=== PATIENT | female | born 1980 | race Caucasian/White ===

== ENCOUNTER 2023-03-23 13:08 | Emergency (ER) | payer OTHER, SELFPAY ==
[2023-03-23 13:13] VITALS: BP 98/70; PULSE 72; O2SAT 95
[2023-03-23 13:18] VITALS: BP 108/79; PULSE 74; RESP 16; TEMP 36.7; O2SAT 97; BMI 25.7
--- NOTE | 2023-03-23 13:31 | ED_ITS ---
HPI - General Adult General Chief complaint: General Medical Stated complaint: DIZZINESS NOT FEELING WELL Time Seen by Provider: 03/23/23 13:19 Source: patient Mode of arrival: EMS Limitations: no limitations History of Present Illness HPI narrative: 42 yo female who reports URI symptoms with cough and cold symptoms took mucinex cough and cold x 3 days with poor appetite. reports she has not been eating much and her is also ill. Denies carbon monoxide concerns. Patient fell asleep at work and EMS was called. Took her usual suboxone dose denies other ingestions. MD complaint: fatigue Onset (ago): day(s) (3) Radiation: non-radiation Severity: mild Quality: aching Relieving factors: other (tired at work) Exacerbating factors: movement Associated symptoms: cough, loss of appetite and other (runny nose) Treatments prior to arrival: other (mucinex cough and cold) Related Data Allergies Allergy/AdvReac Type Severity Reaction Status Date / Time Penicillins Allergy Rash Verified 03/23/23 13:41 Sulfa (Sulfonamide Allergy Rash Verified 03/23/23 13:41 Antibiotics) Review of Systems 2 Review of Systems: Constitutional : No Fever, No Chills, pos Fatigue ENT/Mouth : No sore throat, pos Rhinorrhea Eyes: No Eye Pain, No Swelling, No Redness Cardiovascular : No Chest Pain, No SOB, No Dyspnea on Exertion Respiratory : pos Cough, No Sputum Gastrointestinal : pos Nausea, No Vomiting, No Diarrhea, No abdominal Pain Genitourinary : No Dysuria, No Urinary Frequency, No Hematuria, Musculoskeletal : No joint pain, No Myalgias, No Joint Swelling Skin : No Skin Lesions, No rash Neuro : No Weakness, No Numbness, No Dizziness, no Headache Psych : No Anxiety/Panic, No Depression Heme/Lymph: No Bruising, No Bleeding,No Lymphadenopathy Endocrine : No Polyuria, No Polydipsia All other systems reviewed and are negative [facility] Past Medical History Attestation statement: The following information was validated with the patient. Medical History Opiate use Social History Social History (Updated 03/23/23 @ 14:13 by Fiona Collins DO) Patient Tobacco Use Status: Tobacco use Unknown Advance Directives: No Advance Directives Information Provided: No Physical Exam ED Vital Signs: Vital Signs - 24 hr 03/23/23 13:18 12/01/23 14:11 Temperature 98.1 F Pulse Rate 74 88 Respiratory Rate 16 15 Blood Pressure 108/79 Pulse Oximetry 97 96 Oxygen Delivery Method Room Air Room Air BMI result Body Mass Index 25.7 Appearance: slightly sedated. Oriented X3. No acute distress. Eyes: Pupils equal, round and reactive to light. ENT: Pharynx normal. Neck: Normal inspection. Neck supple. CVS: Normal heart rate and rhythm. Pulses normal. Respiratory: No respiratory distress. Breath sounds normal. Abdomen: Soft and nontender. Skin: Skin warm and dry. Normal skin color. Normal skin turgor. Extremities: No lower extremity edema. No calf ttp Neuro: Oriented X 3. No motor deficit. No sensory deficit. Medications Administered Discontinued Medications Generic Name Dose Route Start Last Admin Trade Name Freq PRN Reason Stop Dose Admin Sodium Chloride 1,000 mls @ 999 mls/hr 03/23/23 14:00 03/23/23 14:35 Ns IV 03/23/23 15:00 999 mls/hr .Q1H1M REJI Administration Medical Decision Making Medical Decision Making [facility] Narrative: 42 yo female with hx of suboxone use but on regular dose here with c/o URI symptoms and not feeling well took cough and cold medications OTC - at this time will obtain basic labs, hydrate and check CO level. She is not altered no headaches, no signs of trauma doubt ICH - possible fatigue, ingestion, CO Differential Diagnosis Differential Diagnoses: The differential diagnosis associated with the presentation includes possible fatigue, ingestion, CO Admission/Observation Consideration of admission/observation: Escalation of care including admission/observation considered patient is more awake she does not want narcan to take home she denies ingestion states she is fine and wants to call for ride. Lab Data [facility] Lab Attestation statement: I reviewed the patient's lab results. 03/23/23 14:28 03/23/23 14:28 Labs: Lab Results 03/23/23 03/23/23 Range/Units 14:28 14:35 WBC 5.0 (4.8-10.8) X10*3/uL RBC 4.07 L (4.20-5.50) X10*6/uL Hgb 12.7 (12.0-16.0) g/dl Hct 37.1 (37.0-47.0) % MCV 91.2 (80.0-98.0) fL MCH 31.2 (27.0-33.0) pg MCHC 34.2 (31.0-35.0) g/dl RDW 13.3 (11.0-16.0) % Plt Count 216 (160-400) X10*3/uL MPV 10.5 (9.4-12.3) fL Immature Gran % (Auto) 0.4 (0.0-0.4) % Neut % (Auto) 51.8 (45-73) % Lymph % (Auto) 23.8 (20-40) % [place] % (Auto) 13.7 H (2-11) % Eos % (Auto) 9.5 H (0-4) % Baso % (Auto) 0.8 (0-2) % Lymph # (Auto) 1.2 (1.2-4.9) X10*3/uL [place] # (Auto) 0.7 (0.1-1.2) X10*3/uL Eos # (Auto) 0.5 H (0.0-0.4) X10*3/uL Baso # (Auto) 0.0 (0.0-0.2) X10*3/uL Abs Immat Gran (auto) 0.02 (0.00-0.03) X10*3/uL Absolute Neuts (auto) 2.6 (2.0-8.3) x10*3/uL Absolute Nucleated RBC 0.000 (0.0-0.012) X10*3/uL Nucleated RBC % (auto) 0.0 (0.0-0.2) /100WBC Carboxyhemoglobin % 3.9 % Sodium 139 (135-145) mmol/L Potassium 4.7 (3.3-5.1) mmol/L Chloride 108 (96-108) mmol/L Carbon Dioxide 23 (22-29) mmol/L Anion Gap 13 (12-20) BUN 16 (9-16) mg/dL Creatinine 0.74 (0.5-1.4) mg/dL Estim Creat Clear Calc 89.3 Estimated GFR > 60 Random Glucose 94 (60-115) mg/dL Calcium 9.4 (8.4-10.2) mg/dL Magnesium 1.9 (1.6-2.6) mg/dL Total Bilirubin 0.4 (0.0-1.0) mg/dL Direct Bilirubin 0.1 (0.0-0.5) mg/dL AST 42 H (5-31) U/L ALT 26 (0-31) U/L Alkaline Phosphatase 56 (39-117) U/L Total Protein 8.0 (6.5-8.0) g/dL Albumin 4.2 (3.5-5.0) g/dL Independent Interpretation I performed an independent interpretation of an: EKG Interpretation: Rate: 81 Rhythm: NSR [place]: normal Normal P waves. Normal ROSSANA. Normal QRS complex. ST T wave : normal no POPPY, inverted T wave V1 - V3. qTC: normal prior studies: no acute ischemia The study has been interpreted contemporaneously by me. . Independent Historian Clinical information obtained from an independent historian. History obtained from or confirmed by: EMS Discharge Plan Discharge Clinical Impression: Fatigue Qualifiers: Fatigue type: unspecified Qualified Code(s): R53.83 - Other fatigue Patient Disposition: Home, Self-Care Instructions: Fatigue (ED) Additional Instructions: will call you if covid and flu positive. labs normal. return for worsening symptoms, confusion, severe headaches, vomiting, difficulty breathing or any other concerns. Stand Alone Forms: Work/School Release
--- NOTE | 2023-03-23 13:56 | ECG_ITS ---
Test Reason : DIZZINESS Blood Pressure : / mmHG Vent. Rate : 081 BPM Atrial Rate : 081 BPM P-R Int : 154 ms QRS Dur : 088 ms QT Int : 410 ms P-R-T Axes : 043 000 011 degrees QTc Int : 476 ms Normal sinus rhythm Normal ECG No previous ECGs available Referred By: Fiona Collins Electronically Signed By:UMA HARGROVE MD
[2023-03-23 14:11] VITALS: PULSE 88; RESP 15; O2SAT 96
[2023-03-23] MEDS: 0.9 % Sodium Chloride 1,000 ML 999 ML IV (14:35)
[2023-03-23 14:37] LABS: MANUAL DIFF FLAG NO
[2023-03-23 14:41] LABS: Carbon Monoxide POC 3.9 %
[2023-03-23 14:41] LABS: Basophils Percent Auto 0.8 % (0-2); Eosinophils Absolute Auto 0.5 X10*3/uL (0.0-0.4); Eosinophils Percent Auto 9.5 % (0-4); Hematocrit 37.1 % (37.0-47.0); Hemoglobin 12.7 g/dl (12.0-16.0); Imm Gran Abs Auto 0.02 X10*3/uL (0.00-0.03); Imm Gran Pct Auto 0.4 % (0.0-0.4); Lymphocytes Absolute Auto 1.2 X10*3/uL (1.2-4.9); Lymphocytes Percent Auto 23.8 % (20-40); Mean Corpuscular HGB Conc 34.2 g/dl (31.0-35.0); Mean Corpuscular Hemoglobin 31.2 pg (27.0-33.0); Mean Corpuscular Volume 91.2 fL (80.0-98.0); Mean Platelet Volume 10.5 fL (9.4-12.3); Monocytes Absolute Auto 0.7 X10*3/uL (0.1-1.2); Monocytes Percent Auto 13.7 % (2-11); Neutrophils Absolute Auto 2.6 x10*3/uL (2.0-8.3); Neutrophils Percent Auto 51.8 % (45-73); Platelet Count 216 X10*3/uL (160-400); Red Blood Count 4.07 X10*6/uL (4.20-5.50); Red Cell Distribution Width 13.3 % (11.0-16.0)
[2023-03-23 14:42] LABS: Carbon Monoxide Refer to POC result
[2023-03-23 15:20] LABS: Alanine Aminotransferase 26 U/L (0-31); Albumin Level 4.2 g/dL (3.5-5.0); Alkaline Phosphatase 56 U/L (39-117); Anion Gap 13 (12-20); Aspartate Amino Transferase 42 U/L (5-31); Bilirubin Direct 0.1 mg/dL (0.0-0.5); Bilirubin Total 0.4 mg/dL (0.0-1.0); Blood Urea Nitrogen 16 mg/dL (9-16); Calcium 9.4 mg/dL (8.4-10.2); Carbon Dioxide 23 mmol/L (22-29); Chloride 108 mmol/L (96-108); Creatinine Clr Calc Pharmacy 89.3; Estimated Glomerular Filt Rate > 60; Glucose Random 94 mg/dL (60-115); Magnesium 1.9 mg/dL (1.6-2.6); Potassium 4.7 mmol/L (3.3-5.1); Sodium 139 mmol/L (135-145)
[2023-03-23 15:43] VITALS: BP 134/76; PULSE 82; RESP 17; O2SAT 98
[2023-03-23 15:48] LABS: Influenza A PCR NEGATIVE (Negative); Influenza B PCR NEGATIVE (Negative); Resp Syncy Virus RNA Qual PCR NEGATIVE (Negative); SARS COV2 PCR INHOUSE NEGATIVE (Negative)
== END 2023-03-23 15:45 | disposition home or self-care (01) ==
PROVIDERS: Emergency Provider Emergency Medicine
DX: R42 Dizziness and giddiness (principal); R05.9 Cough, unspecified; R53.83 Other fatigue; Z20.822 Contact with and (suspected) exposure to COVID-19; Z20.828 Contact with and (suspected) exposure to other viral communicable diseases; Z79.899 Other long term (current) drug therapy
CPT/HCPCS: 0241U; 80048; 80076; 82375; 83735; 85025; 93005; 99283; 99284

== ENCOUNTER → 2023-03-23 13:56 | Outpatient (BNV) | payer OTHER, SELFPAY | PROVIDERS: Emergency Provider Emergency Medicine; Visit Provider Internal Medicine Cardiovascular Disease | DX: R42 Dizziness and giddiness (principal) | CPT/HCPCS: 93010 ==